=== PATIENT | female | born 1955 | race Caucasian/White ===

== ENCOUNTER → 2016-09-07 | Outpatient (CLI) | payer OTHER | LOC: MC.RAD 14:00 | DX: Z12.31 Encounter for screening mammogram for malignant neoplasm of breast (principal); N64.89 Other specified disorders of breast ==

== ENCOUNTER → 2016-09-12 | Outpatient (CLI) | payer OTHER | LOC: MC.RAD 12:57 | DX: D48.62 Neoplasm of uncertain behavior of left breast (principal) ==

== ENCOUNTER → 2016-09-13 | Outpatient (CLI) | payer OTHER | LOC: MC.RAD 13:51 | DX: D24.2 Benign neoplasm of left breast (principal) ==

== ENCOUNTER → 2016-09-18 | Outpatient (CLI) | payer OTHER | LOC: MC.RAD 12:44 | DX: R92.8 Other abnormal and inconclusive findings on diagnostic imaging of breast (principal) ==

== ENCOUNTER → 2019-03-06 | Outpatient (CLI) | payer BC | LOC: COL.RAD 10:24 | DX: R10.11 Right upper quadrant pain (principal) ==

== ENCOUNTER → 2019-03-21 | Outpatient (CLI) | payer BC | LOC: COL.RAD 06:28 | DX: R10.11 Right upper quadrant pain (principal) | CPT/HCPCS: A9537 ==

== ENCOUNTER → 2019-04-09 | Outpatient (CLI) | payer BC | LOC: COL.RAD 04-07 10:30 | DX: K31.89 Other diseases of stomach and duodenum (principal); Z01.818 Encounter for other preprocedural examination; Z90.710 Acquired absence of both cervix and uterus | CPT/HCPCS: Q9967 ==

== ENCOUNTER 2019-04-22 12:34 | Day surgery (SDC) | payer BC ==
[~2019-04-22] VITALS: Ht 160 cm; Wt 59.0 kg
[2019-04-22] MEDS ORDERED: ENULOSE10 GM/151 PO (13:06)
[2019-04-22] MEDS ORDERED: CLIMARA 0.1 PATCH.WK TD (13:06)
[2019-04-22] MEDS ORDERED: [UNRECOGNIZED DRUG - OTHER] PO (13:07)
[2019-04-22] MEDS ORDERED: SYNTHROID0.05 MG/TA PO (13:07)
[2019-04-22 13:08] VITALS: BP 121/57; PULSE 72; TEMP 98.1
[2019-04-22 14:45] VITALS: BP 130/72; PULSE 85
--- NOTE | 2019-04-22 14:45 | NUR ---
Patient returns to [facility] per cart and transfers from cart to recliner with two person standby assist. IV fluids infusing. Denies nausea or abdominal pain. Spouse in room. Call light in reach. Taking apple juice.
[2019-04-22] MEDS ORDERED: LINZESS290CAP (14:52)
[2019-04-22] MEDS ORDERED: PROTONIX 40MG T40 MG PO (14:52)
[2019-04-22 15:00] VITALS: BP 108/66; PULSE 79
--- NOTE | 2019-04-22 15:00 | NUR ---
Resting and talking with spouse. IV fluids continue to infuse. Eating dark chocolate pieces brought from home. Denies nausea or difficulty swalloing.
[2019-04-22 15:15] VITALS: BP 115/64; PULSE 74
--- NOTE | 2019-04-22 15:15 | NUR ---
Continues to sip on apple juice and denies pain or nausea.
[2019-04-22 15:30] VITALS: BP 114/54; PULSE 64
--- NOTE | 2019-04-22 15:30 | NUR ---
Dr. Palmer here to talk with the patient and all questions answered. IV discontinued and allowed patient to dress. Spouse in room with patient. States that she is beginning to have intermittent nausea.
--- NOTE | 2019-04-22 15:45 | NUR ---
Given dismissal instructions and voices understanding of these and informed to begin Raina and Jovanix. Instructed that Dr. Palmer's office will call with follow up appointment.
--- NOTE | 2019-04-22 15:53 | NUR ---
Patient dismissed to home per private vehicle driven by spouse with instructions in hand. Taken to the front door per wheelchair by this RN and assisted into vehicle.
== END 2019-04-22 15:53 | disposition home or self-care (01) ==
LOC: SDCO 12:34
DX: K21.0 Gastro-esophageal reflux disease with esophagitis (principal); K25.7 Chronic gastric ulcer without hemorrhage or perforation; K59.00 Constipation, unspecified; K63.89 Other specified diseases of intestine; Z86.010 Personal history of colon polyps; K58.9 Irritable bowel syndrome, unspecified; Z80.0 Family history of malignant neoplasm of digestive organs; Z90.710 Acquired absence of both cervix and uterus; Z90.722 Acquired absence of ovaries, bilateral; Z90.79 Acquired absence of other genital organ(s); E78.00 Pure hypercholesterolemia, unspecified; E03.9 Hypothyroidism, unspecified
CPT/HCPCS: J2250; J2405; J3010; J7030

== ENCOUNTER 2021-07-27 09:17 | Day surgery (SDC) | payer MEDICARE, OTHER ==
[~2021-07-27] VITALS: Ht 160 cm; Wt 63.6 kg
[~2021-07-27 09:17] MED LIST: CLIMARA 0.1 PATCH.WK TD; ENULOSE10 GM/151 PO; LINZESS290CAP; PROTONIX 40MG T40 MG PO; SYNTHROID0.05 MG/TA PO; [UNRECOGNIZED DRUG - OTHER] PO
[2021-07-27 10:07] VITALS: BP 129/60; PULSE 67; TEMP 97.8
[2021-07-27 11:30] VITALS: BP 115/59; PULSE 72; TEMP 97.7
[2021-07-27 11:45] VITALS: BP 127/59; PULSE 65
[2021-07-27 12:00] VITALS: BP 135/64; PULSE 66
--- NOTE | 2021-07-27 12:30 | NUR ---
1130 Pt returns from endo procedure via cart and RN assist to [facility] 3. Pt ambulates from cart to recliner with RN assist. Monitors on and alarms set. Call light within reach. Report received from FRANCISCA Dunn. Pt alert and oriented. Pt requests drink. Pt denies any pain or nausea. present in room. 1140 Pt taking drink well. No complications noted. 1220 Discharge instructions given to pt and . All questions answered to their satisfaction. Handed to pt's are a thank you card and discharge information. 1230 Pt transferred out of the hospital via wheelchair and this RN assist, to private vehicle driven by pt's .
== END 2021-07-27 12:30 | disposition home or self-care (01) ==
LOC: SDCO 09:17
DX: K29.50 Unspecified chronic gastritis without bleeding (principal); K31.7 Polyp of stomach and duodenum; K21.9 Gastro-esophageal reflux disease without esophagitis; E03.9 Hypothyroidism, unspecified; K82.8 Other specified diseases of gallbladder; Z87.11 Personal history of peptic ulcer disease; Z79.899 Other long term (current) drug therapy; Z90.49 Acquired absence of other specified parts of digestive tract; Z90.710 Acquired absence of both cervix and uterus; Z79.890 Hormone replacement therapy; Z80.0 Family history of malignant neoplasm of digestive organs
CPT/HCPCS: J2704; J7120

== ENCOUNTER 2022-12-20 10:08 | Day surgery (SDC) | payer MEDICARE, OTHER ==
[~2022-12-20] VITALS: Ht 160 cm; Wt 64.5 kg
[2022-12-20] VITALS (11 sets, daily range): BP systolic 91–125; BP diastolic 47–74; PULSE 63–78; TEMP 97.5
[2022-12-20] MEDS ORDERED: ASPIRIN E.C. 8181 MG PO (10:29)
[2022-12-20 11:08] LABS: HEMOGLOBIN 14.2 g/dl (12.5-16.0); MEAN CELL VOLUME 94 fl (80.0-100.0); MEAN CORPUSCULAR HEMOGLOBIN 30 pg (27-31); MEAN CORPUSCULAR HGB CONC 32 g/dl (33.0-37.0); MEAN PLATELET VOLUME 9.7 fl (7.4-10.4); PLATELET COUNT 214 K/mm3 (130-400); PROTHROMBIN TIME 11.1 SECONDS (9.7-12.8); REDCELL DISTRIBUTION WIDTH-CV 12.1 % (11.5-14.5)
[2022-12-20 11:11] LABS: PARTIAL THROMBOPLASTIN TIME 30.3 SECONDS (26.0-37.0)
[2022-12-20] MEDS ORDERED: NITROSTAT0.3 MG SL (11:14)
[2022-12-20 11:18] LABS: CALCIUM 9.9 mg/dL (8.4-10.2); CREATININE, serum 0.82 mg/dL (0.57-1.11); POTASSIUM 4.2 mmol/L (3.5-4.5)
[2022-12-20] MEDS ORDERED: LIPITOR 40MG TA40 MG PO (13:57)
[2022-12-20] MEDS ORDERED: GNC L-ARGININE500 MG PO (13:57)
--- NOTE | 2022-12-20 14:00 | NUR ---
PT RETURNED TO ME FROM [employer] RELATIONS OFFICER. REPORT FROM JR. EDEN WNL. RIGHT RADIAL SITE CDI
--- NOTE | 2022-12-20 15:30 | NUR ---
PT ATE 100% OF LUNCH. UP TO BATHROOM. STABLE ON FEET
--- NOTE | 2022-12-20 15:47 | NUR ---
BEGAN RELEASING AIR FROM BAND. 2MLS. NO BLEEDING CHRIS CONTINUE RELEASING 2 MLS EERY 5-10MINUTES AND LONG THERE IS NO BLEEDING
--- NOTE | 2022-12-20 16:50 | NUR ---
PT UP TP RESTROOM 2ND TIME. PT SLOWLY GETTING DRESSES. NO BLEEDING. TR BAND REMOVED, BANDAGE PALCED. IV DISCONTINUED. DISCHARGE INSTRUCTIONS GONE OVER WITH PT AND SPOUSE. BOTH STATE UNDERSTANDING. WHEELED PT TO ENTRANCE AND HELPED PT INTO CAR.
== END 2022-12-20 16:58 | disposition home or self-care (01) ==
LOC: COL.CAR 10:08
PROVIDERS: Internal Medicine Cardiovascular Disease
DX: I25.110 Atherosclerotic heart disease of native coronary artery with unstable angina pectoris (principal); Z28.310 Unvaccinated for COVID-19
CPT/HCPCS: C1769; J1644; J2250; J3010; Q9967